=== PATIENT | male | born 1950 | race African-American/Black ===

== ENCOUNTER 2018-03-27 11:17 | Inpatient (IN) | payer MEDICARE ==
[~2018-03-27] VITALS: Ht 182.9 cm; Wt 86.2 kg
[2018-03-27] MEDS ORDERED: SODIUM CHLORIDE 0.9% 1,000 ML IV ONE ×2 (11:52→13:33)
[2018-03-27 12:01] LABS: HEMOGLOBIN. 17.7 g/dL (14.0-18.0); MEAN CORPUSCULAR HEMOGLOBIN 27.3 pg (28.0-32.0); MEAN CORPUSCULAR VOLUME 86.6 fL (80.0-94.0); MEAN PLATELET VOLUME 8.2 fl (7.4-10.4); PLATELET 304 x1000/uL (130-400); RED BLOOD CELL COUNT 6.47 mill/uL (4.7-6.1); RED CELL DISTRIBUTION WIDTH 16.6 % (11.6-14.6)
[2018-03-27 12:08] LABS: INR 1.2; PROTHROMBIN TIME 12.3 sec (9.1-11.1)
[2018-03-27 12:20] LABS: PLATELET ESTIMATE NORMAL
[2018-03-27 12:48] LABS: CHLORIDE 99 mEq/L (98-107)
[2018-03-27 12:48] LABS: CLARITY URINE CLOUDY (CLEAR); KETONES URINE 1+ (NEGATIVE); LEUKOCYTE ESTERASE URINE TRACE (NEGATIVE); NITRITE URINE NEGATIVE (NEGATIVE); OCCULT BLOOD URINE 3+ (NEGATIVE); PROTEIN URINE 2+ (NEGATIVE); SPECIFIC GRAVITY URINE 1.021 (1.005-1.030)
[2018-03-27 12:50] LABS: COLOR URINE AMBER (YELLOW)
[2018-03-27 12:54] LABS: ETHANOL BLOOD < 10 mg/dL
[2018-03-27 12:58] LABS: *AMPHETAMINES SCREEN URINE NEGATIVE (NEGATIVE); *BENZODIAZEPINES SCREEN URINE NEGATIVE (NEGATIVE); *COCAINE SCREEN URINE NEGATIVE (NEGATIVE)
[2018-03-27 12:59] LABS: CANNABINOID URINE SCREEN NEGATIVE (NEGATIVE); METHADONE URINE SCREEN NEGATIVE (NEGATIVE); OPIATES URINE SCREEN NEGATIVE (NEGATIVE); PHENCYCLIDINE URINE SCREEN NEGATIVE (NEGATIVE)
[2018-03-27 13:06] LABS: *BARBITURATES SCREEN URINE NEGATIVE (NEGATIVE)
[2018-03-27 13:14] LABS: CREATINE KINASE 6538 IU/L (39-308)
[2018-03-27] MEDS ORDERED: LORAZEPAM 0.5MG TABLET PO PRN (20:45)
[2018-03-27] MEDS ORDERED: CLONIDINE 0.1MG TABLET PO PRN (20:45)
[2018-03-27] MEDS ORDERED: ONDANSETRON HCL 4MG/2ML INJ IV PRN (20:45)
[2018-03-27] MEDS ORDERED: GUAIFENESIN 200MG/10ML SUGAR FREE UDC PO PRN (20:45)
[2018-03-27] MEDS ORDERED: DIPHENHYDRAMINE 50MG/ML VIAL IV PRN (20:45)
[2018-03-27] MEDS ORDERED: ACETAMINOPHEN 325MG TABLET PO PRN (20:45)
[2018-03-27] MEDS ORDERED: MAGNESIUM/ALUMINUM HYDROXIDE/SIMETHICONE 30ML UDC PO PRN (20:45)
[2018-03-28] MEDS ORDERED: DEXT 5%/0.45% NACL 1000ML 1,000 ML IV SCH (01:08)
[2018-03-28] MEDS: FAMOTIDINE 20MG TABLET PO SCH ×2 (01:17→20:39)
[2018-03-28 05:57] LABS: BASOPHILS % 1.2 % (0.0-2.0); EOSINOPHILS % 0.8 % (0.0-5.0); HEMATOCRIT. 53.3 % (42.0-52.0); HEMOGLOBIN. 16.8 g/dL (14.0-18.0); LYMPHOCYTES % 13.1 % (20.0-50.0); MEAN CORPUSCULAR HEMOGLOBIN 27.4 pg (28.0-32.0); MEAN CORPUSCULAR VOLUME 87.2 fL (80.0-94.0); MEAN PLATELET VOLUME 7.9 fl (7.4-10.4); MONOCYTES % 5.7 % (2.0-8.0); NEUTROPHILS % 79.2 % (40.0-76.0); PLATELET 258 x1000/uL (130-400); RED BLOOD CELL COUNT 6.11 mill/uL (4.7-6.1); RED CELL DISTRIBUTION WIDTH 16.2 % (11.6-14.6)
[2018-03-28 06:02] LABS: CHLORIDE 108 mEq/L (98-107)
[2018-03-28 06:08] LABS: PHOSPHORUS 3.3 mg/dL (2.5-4.9)
[2018-03-28 06:22] LABS: CREATINE KINASE 3507 IU/L (39-308)
[2018-03-28 08:50] VITALS: BP 0/0
[2018-03-28] MEDS: OLANZAPINE 10MG TABLET PO SCH (09:45)
[2018-03-28] MEDS ORDERED: HALOPERIDOL LACTATE 5MG/ML VIAL IM SCH (09:45)
[2018-03-28] MEDS ORDERED: DIPHENHYDRAMINE 50MG/ML VIAL IM PRN (09:45)
[2018-03-28] MEDS ORDERED: LORAZEPAM 2MG/ML CPJ IM SCH (09:45)
[2018-03-28 12:00] VITALS: BP 134/67
[2018-03-28 16:00] VITALS: BP 147/64
[2018-03-29 04:00] VITALS: BP 150/68
[2018-03-29 08:01] VITALS: BP 133/78
[2018-03-29] MEDS: OLANZAPINE 10MG TABLET PO SCH (08:23)
[2018-03-29 12:00] VITALS: BP 117/60
[2018-03-29 20:13] VITALS: BP 139/82
[2018-03-29] MEDS: FAMOTIDINE 20MG TABLET PO SCH (20:24)
[2018-03-30 00:13] VITALS: BP 147/85
[2018-03-30 04:00] VITALS: BP 129/70
[2018-03-30 11:12] LABS: BASOPHILS % 0.6 % (0.0-2.0); EOSINOPHILS % 1.6 % (0.0-5.0); HEMATOCRIT. 56.7 % (42.0-52.0); HEMOGLOBIN. 17.5 g/dL (14.0-18.0); LYMPHOCYTES % 12.7 % (20.0-50.0); MEAN CORPUSCULAR HEMOGLOBIN 27.2 pg (28.0-32.0); MEAN CORPUSCULAR VOLUME 88.1 fL (80.0-94.0); MEAN PLATELET VOLUME 8.2 fl (7.4-10.4); MONOCYTES % 6.4 % (2.0-8.0); NEUTROPHILS % 78.7 % (40.0-76.0); PLATELET 268 x1000/uL (130-400); RED BLOOD CELL COUNT 6.44 mill/uL (4.7-6.1); RED CELL DISTRIBUTION WIDTH 16.3 % (11.6-14.6)
[2018-03-30 12:02] LABS: CHLORIDE 104 mEq/L (98-107)
== END 2018-03-30 14:15 | disposition home or self-care (01) | DRG 682 ==
LOC: ER 11:24 → 8WST 13:25 → EDBEDREQ 13:29 → ENRESERV 03-28 07:20 → 8WST 03-28 09:28
PROVIDERS: ADMIT Internal Medicine; ATTEND Internal Medicine
DX: N17.9 Acute kidney failure, unspecified (principal); G93.41 Metabolic encephalopathy; M62.82 Rhabdomyolysis; R65.10 Systemic inflammatory response syndrome (SIRS) of non-infectious origin without acute organ dysfunction; F23 Brief psychotic disorder; N39.0 Urinary tract infection, site not specified; E87.5 Hyperkalemia; E86.9 Volume depletion, unspecified; F60.0 Paranoid personality disorder; I10 Essential (primary) hypertension; N28.1 Cyst of kidney, acquired; Z87.891 Personal history of nicotine dependence; Z91.83 Wandering in diseases classified elsewhere
CPT/HCPCS: 36415; 71045; 76770; 80048; 80305; 82140; 82550; 83605; 83735; 84100; 84484; 93005; 93970; 96361; 96365; 99291; G0482; J1200; J1630; J2060; J7030